=== PATIENT | male | born 1975 | race Caucasian/White ===

== ENCOUNTER 2017-04-04 18:46 | Emergency (ER) | payer OTHER ==
[~2017-04-04] VITALS: Ht 193 cm; Wt 80.2 kg
[~2017-04-04 18:46] MED LIST: MOTRIN600 MG PO; NAPROSYN500 MG PO; PERCOCET 5/31 TABLET PO
[2017-04-04] MEDS ORDERED: ROBAXIN750 MG PO (20:29)
[2017-04-04] MEDS ORDERED: MEDROL DOSEPAK4 MG PO (20:29)
[2017-04-04] MEDS ORDERED: NORCO 5/3251 TABLET PO (20:29)
[2017-04-04 21:19] VITALS: BP 170/96
== END 2017-04-04 21:20 | disposition home or self-care (01) ==
LOC: EME 18:46
DX: S16.1XXA Strain of muscle, fascia and tendon at neck level, initial encounter (principal); S39.012A Strain of muscle, fascia and tendon of lower back, initial encounter; V43.53XA Car driver injured in collision with pick-up truck in traffic accident, initial encounter; Y92.410 Unspecified street and highway as the place of occurrence of the external cause; Z88.0 Allergy status to penicillin
CPT/HCPCS: 72040; 72100; 99281; 99284; J7512

== ENCOUNTER 2017-05-29 15:17 | Emergency (ER) | payer SELFPAY ==
[~2017-05-29] VITALS: Ht 193 cm; Wt 78.2 kg
[~2017-05-29 15:17] MED LIST changes: +MEDROL DOSEPAK4 MG PO; +NORCO 5/3251 TABLET PO; +ROBAXIN750 MG PO
[2017-05-29 18:00] VITALS: BP 148/72
== END 2017-05-29 18:01 | disposition home or self-care (01) ==
LOC: EME 15:17
DX: S93.401A Sprain of unspecified ligament of right ankle, initial encounter (principal); X50.1XXA Overexertion from prolonged static or awkward postures, initial encounter; Y93.01 Activity, walking, marching and hiking; F17.200 Nicotine dependence, unspecified, uncomplicated; Z88.0 Allergy status to penicillin
CPT/HCPCS: 73610; 99281; 99284

== ENCOUNTER 2017-10-16 15:16 | Emergency (ER) | payer OTHER ==
[~2017-10-16] VITALS: Ht 193 cm; Wt 86.3 kg
[2017-10-16] MEDS ORDERED: FLEXERIL10 MG PO (19:04)
[2017-10-16] MEDS ORDERED: ULTRAM50 MG PO (19:58)
[2017-10-16 20:07] VITALS: BP 152/93
== END 2017-10-16 20:07 | disposition home or self-care (01) ==
LOC: EME 15:16
DX: G89.29 Other chronic pain (principal); M54.5 Low back pain; M25.78 Osteophyte, vertebrae
CPT/HCPCS: 72131; 99281; 99283; J1885; J2270